=== PATIENT | female | born 1960 | race Hispanic/Latino ===

== ENCOUNTER 2023-11-13 19:23 | Emergency (ER) | payer BC ==
[~2023-11-13] VITALS: Ht 162.6 cm; Wt 87.1 kg
[2023-11-13 19:25] VITALS: BP 171/99; PULSE 65; RESP 20
[2023-11-13 20:15] LABS: APPEARANCE,URINE CLOUDY (CLEAR); BILIRUBIN,URINE NEGATIVE (NEGATIVE); COLOR,URINE LIGHT-YELLOW (YELLOW); GLUCOSE, URINE (UA) NEGATIVE (NEGATIVE); KETONES,URINE NEGATIVE (NEGATIVE); LEUKOCYTE ESTERASE ,URINE 25 Leu/uL (NEGATIVE); NITRATE,URINE NEGATIVE (NEGATIVE); PROTEIN,URINE NEGATIVE (NEGATIVE); UROBILINOGEN,URINE 0.2 mg/dL (0.2-1.0)
[2023-11-13 20:17] LABS: ADD UA MICROSCOPIC YES
[2023-11-13 20:19] LABS: BACTERIA,URINE RARE /HPF (None Seen); MUCUS,URINE RARE LPF (None Seen); SQUAMOUS EPITHELIAL CELL,UR RARE /HPF (0-2); YEAST,URINE BUDDING RARE /HPF (None Seen)
[2023-11-13] MEDS ORDERED: CEPH500B PO (21:42)
[2023-11-13] MEDS ORDERED: IBUP-1493 PO (21:42)
== END 2023-11-13 21:49 | disposition home or self-care (01) ==
LOC: EDH 19:23
DX: M75.51 Bursitis of right shoulder (principal); N39.0 Urinary tract infection, site not specified; I10 Essential (primary) hypertension; Z88.2 Allergy status to sulfonamides; Z90.49 Acquired absence of other specified parts of digestive tract
CPT/HCPCS: 29105; 36415; 71045; 73030; 81001; 82550; 84484; 87088; 93005